=== PATIENT | female | born 1960 | race Caucasian/White ===

== ENCOUNTER → 2017-04-19 | Day surgery (SDC) | payer OTHER ==
[~2017-04-19] MED LIST: ATORVASTATIN CA20 MG PO; DIAZEPAM5 MG PO; DIOVAN HCT 3201 EACH PO; EFFEXOR XR 3737.5 MG PO; FENTANYL CITRATE/PF 100MCG/2 ML INJ ONE; MIDAZOLAM HCL 2 MG/2 ML VIAL ONE; PANTOPRAZOLE 40 MG 10ML VIAL ONE; PROPOFOL IV EMULSION 10 MG/ML 50 ML VIAL ONE; ULTRACET TABLE1 EACH PO
--- NOTE | 2017-04-19 14:34 | Operative Report ---
DATE OF PROCEDURE: April 19, 2017 REFERRING PHYSICIAN: Dr. Tatiana Gannon PROCEDURE PERFORMED: Esophagogastroduodenoscopy with biopsies and esophageal dilatation. INDICATIONS FOR EGD: Dysphagia to solids, heartburn, indigestion, nausea, and vomiting. MEDICATION: Patient was done under MAC. Please see anesthesiologist's note. PROCEDURE: With the patient in the left lateral decubitus position, the flexible fiberoptic Olympus gastroscope was introduced into the esophagus under direct visualization without any difficulty. The distal third of the esophagus was ulcerated. There was some nodularity and friability noted at the GE junction that was biopsied. A mild stricture was noted also at the GE junction that was dilated to size 15 Savory over a wire. The scope was then advanced with ease into the stomach traversing a moderate size hiatal hernia. The mucosa overlying the antrum and the body revealed some patchy erythema and low-grade to moderate edema, and biopsies were obtained and sent to stain for H. pylori. An approximately 5-mm ulcer was noted in the antrum that was biopsied. There was no active bleeding or stigmata of recent hemorrhage. The pylorus was intubated with ease. The scope was advanced all the way to the 2nd portion of the duodenum. The scope was then withdrawn slowly. Mucosa overlying the proximal 2nd portion and the duodenal bulb appeared to be within normal limits. The scope was then withdrawn back into the stomach and retroflexed. Mucosa overlying the fundus and the cardia appeared to be within normal limits. The scope was then straightened out. The stomach was decompressed. The scope was subsequently withdrawn. Patient tolerated the procedure well. IMPRESSION 1. Ulcerated distal esophagus. 2. Focal nodularity and friability at the gastroesophageal junction, biopsied. 3. 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 4. Moderate sized sliding hiatal hernia. 5. Gastritis, biopsied. Biopsies sent to stain for Helicobacter pylori. 6. Gastric ulcer, antrum, biopsied. PLAN: Follow up histology. Initiate Protonix 40 mg 1 p.o. a.c. b.i.d. Patient will need to have a followup EGD in 2 months to re-evaluate the esophagus. Job#: [id number] RI cc:TATIANA GANNON, DO
== END | disposition home or self-care (01) ==
LOC: OR 07:42
PROVIDERS: ATTEND Internal Medicine Gastroenterology
DX: K22.2 Esophageal obstruction (principal); K29.70 Gastritis, unspecified, without bleeding; K25.9 Gastric ulcer, unspecified as acute or chronic, without hemorrhage or perforation; K21.0 Gastro-esophageal reflux disease with esophagitis; K22.10 Ulcer of esophagus without bleeding; K44.9 Diaphragmatic hernia without obstruction or gangrene; I10 Essential (primary) hypertension; F32.9 Major depressive disorder, single episode, unspecified; F41.9 Anxiety disorder, unspecified; Z01.810 Encounter for preprocedural cardiovascular examination
CPT/HCPCS: 43239; 43248; 93005; J2250; 43450

== ENCOUNTER → 2018-11-06 | Outpatient (CLI) | payer OTHER ==
[~2018-11-06] MED LIST changes: -FENTANYL CITRATE/PF 100MCG/2 ML INJ ONE; +GADOBENATE DIMEGLUMINE 1 ML IV ONE; -MIDAZOLAM HCL 2 MG/2 ML VIAL ONE; -PANTOPRAZOLE 40 MG 10ML VIAL ONE; -PROPOFOL IV EMULSION 10 MG/ML 50 ML VIAL ONE
--- NOTE | 2018-11-06 10:11 | Diagnostic Imaging Report ---
CT LUMBAR SPINE WO HISTORY: Low back pain, radiates to left leg and hip COMPARISON: None. TECHNIQUE: Axial CT images of the lumbar spine were obtained without contrast. Coronal and sagittal reconstructions obtained from the axial data. One or more of the following dose reduction techniques were used: Automated exposure control, adjustment of the mA and/or kV according to patient size, and/or utilization of iterative reconstruction technique. DISCUSSION: Mild bone demineralization limits evaluation. There are 5 nonrib-bearing lumbar vertebral bodies. Lumbar lordosis is preserved. There is no significant scoliosis or subluxation. No definite acute fracture or compression deformity is is seen. No gross spinal canal mass is seen. The paravertebral and paraspinal soft tissues are unremarkable. Multilevel spondylotic changes are mild to moderate at L4-L5 (mainly on the left) and severe at L5-S1. Mild bilateral sacroiliac degenerative changes are present as well. L1-L2: No gross canal or foraminal stenosis. L2-L3: Mild left foraminal stenosis due to disc bulge and facet arthrosis. No gross canal or right foraminal stenosis. L3-L4: Mild bilateral foraminal stenoses due to disc bulge and facet arthrosis. No gross canal stenosis. L4-L5: At least mild to moderate canal stenosis due to disc bulge (suspected to be asymmetric towards the left). Moderate left foraminal stenosis due to disc bulge and facet arthrosis. No gross right foraminal stenosis. L5-S1: At least moderate canal stenosis due to posterior disc osteophyte complex. Moderate to severe bilateral foraminal stenoses due to posterior disc osteophyte complex and facet arthrosis. Mild aortoiliac calcified atherosclerosis. IMPRESSION: 1. No acute osseous abnormalities. 2. Multilevel spondylosis, severe at L5-S1 and mild to moderate at L4-L5. 3. Multilevel degenerative canal stenoses - at least mild to moderate at L4-L5 and moderate at L5-S1. Associated disc bulge at L4-L5 is suspected to be asymmetric towards the left. 4. Multilevel degenerative foraminal stenoses - moderate on the left at L4-L5; moderate to severe bilaterally at L5-S1. Signed by: Dr. Kevin Westfall M.D. on 11/06/2018 10:07 AM
--- NOTE | 2018-11-07 09:01 | Diagnostic Imaging Report ---
TECHNIQUE: Magnetic resonance imaging of the left femur was performed without and with injected contrast. 14 mL of MultiHance HISTORY: Muscle mass COMPARISON: None available. FINDINGS: Bone marrow signal is normal. No edema or infiltrating lesion. No fracture. No abnormal enhancement. Soft tissue marker placed along the left lateral hip. No concerning soft tissue mass or nodule. No fluid collection. The muscle bulk is preserved. No edema. Proximal hamstring tendinopathy. IMPRESSION: No concerning soft tissue mass. Proximal hamstring tendinopathy. Signed by: Dr. Sid Gore M.D. on 11/07/2018 8:58 AM
== END ==
LOC: MRI 07:08
PROVIDERS: ATTEND Family Medicine
DX: R29.898 Other symptoms and signs involving the musculoskeletal system (principal)
CPT/HCPCS: 72131

== ENCOUNTER → 2018-12-04 | Outpatient (CLI) | payer OTHER ==
[~2018-12-04] MED LIST changes: -GADOBENATE DIMEGLUMINE 1 ML IV ONE
--- NOTE | 2018-12-04 12:09 | Diagnostic Imaging Report ---
EXAMINATION: SP LUMBAR AP LATERAL 2-3VWS INDICATION: Back pain COMPARISON: None FINDINGS: 3 views of the lumbar spine demonstrate no acute fracture. Vertebral body heights are maintained. Minimal retrolisthesis at L4-5. Lumbosacral degenerative changes at L5-S1 with disc space narrowing, osteophyte formation, and facet arthropathy. Status post right hip arthroplasty. Nonobstructive bowel gas pattern. No free air. Phleboliths in the pelvis. IMPRESSION: No compression fracture. Minimal retrolisthesis at L4-5. Degenerative changes, most notably at L5-S1. Signed by: Fady Martin MD on 12/04/2018 12:06 PM
--- NOTE | 2018-12-04 14:55 | Diagnostic Imaging Report ---
MRI SPINE LUMBAR WO HISTORY: Low back pain, left leg pain COMPARISON: CT of the lumbar spine 11/06/2018 TECHNIQUE: Sagittal T1, sagittal T2, sagittal STIR, axial T2, coronal T2, and axial proton density weighted images of the lumbar spine were obtained without contrast. Motion artifacts obscure some details. DISCUSSION: Number of non-rib bearing lumbar vertebral bodies: 5. Alignment: Normal lordosis. Subtle thoracolumbar levoscoliosis is present. Vertebrae: No fractures, or neoplasm. Conus medullaris: Normal, ends at T12-L1. Cauda equina: The thecal sac at L5 is effaced due to epidural lipomatosis. No masses or arachnoiditis. Posterior paraspinal muscles: Well preserved. No signal abnormalities. Soft tissues: Partially visualized T2 hyperintense lesion in the posterior right hepatic lobe may be a cyst. Multilevel disc degeneration is severe at L5-S1. There are nonspecific mild inflammatory endplate changes at L5-S1. Minimal inflammatory endplate changes at L4-L5 are also present. T12-L1: Patent canal and foramina. L1-L2: Patent canal and foramina. L2-L3: Disc bulge without significant canal or foraminal stenosis. L3-L4: Mild canal stenosis due to disc bulge and ligamentum flavum thickening. Mild bilateral foraminal stenoses due to disc bulge and facet arthrosis. L4-L5: Moderate canal stenosis due to disc bulge, ligamentum flavum thickening, and superimposed 3 mm left paracentral disc protrusion. The left lateral recess is effaced. The disc protrusion impinges upon the left L5 nerve root. Mild right and mild to moderate left foraminal stenoses due to disc bulge and facet arthrosis. L5-S1: Mild canal stenosis due to disc bulge and ligamentum flavum thickening; this is accentuated by epidural lipomatosis. Moderate to severe bilateral foraminal stenoses due to disc bulge and facet arthrosis. IMPRESSION: 1. Multilevel disc degeneration, severe at L5-S1 with nonspecific mild inflammatory endplate changes. 2. Multilevel degenerative canal stenoses - moderate at L4-L5. Associated 3 mm left L4-L5 paracentral disc protrusion impinges upon the left L5 nerve root. 3. The thecal sac at L5 is effaced due to epidural lipomatosis. 4. Multilevel degenerative foraminal stenoses - moderate to severe bilaterally at L5-S1. Signed by: Dr. Kevin Westfall M.D. on 12/04/2018 2:52 PM
== END ==
LOC: MRI 09:38
PROVIDERS: ATTEND Specialist
DX: M54.5 Low back pain (principal); M54.16 Radiculopathy, lumbar region; M79.605 Pain in left leg
CPT/HCPCS: 72100; 72148